=== PATIENT | female | born 1965 | race Caucasian/White ===

== ENCOUNTER 2016-05-30 10:37 | Day surgery (SDC) | payer OTHER ==
[~2016-05-30] VITALS: Ht 157.5 cm; Wt 70.3 kg
[~2016-05-30 10:37] MED LIST: CLINDAMYCIN 600MG PREMIX 50 ML IV PRN; CLON0.1T PO; FENTANYL PF 100 MCG/2 ML VIAL. IV PRN; HYDROMORPHONE 2 MG/ML VIAL. IV PRN; IV RINGERS,LACTATED 1000ML 1,000 ML IV SCH; LIDOCAINE 1% 1 ML SYRINGE. ID PRN; LIDOCAINE 1%/EPI 1:100,000 20 ML VIAL. ONE; LISI1TAB7 PO; MORPHINE SULFATE 2 MG/ML DISP.SYRIN. IV PRN; ONDANSETRON PF 4 MG/2 ML VIAL. IV PRN; OXYC-323 PO; Oxycodone Hcl/Acetaminophen PO; PROCHLORPERAZINE 10 MG/2 ML VIAL. IV PRN
[2016-05-30] MEDS ORDERED: PROPOFOL 20 ML IV ONE (12:19)
[2016-05-30] MEDS ORDERED: LIDOCAINE 2% 100 MG/5 ML DISP.SYRIN. ONE (12:19)
[2016-05-30] MEDS ORDERED: MIDAZOLAM HCL 2 MG/2 ML VIAL. ONE (12:19)
[2016-05-30] MEDS ORDERED: SEVOFLURANE 31 TO 60 MINUTES. IH ONE (12:33)
[2016-05-30] MEDS ORDERED: DEXAMETHASONE SOD PHOS 20 MG/5 ML VIAL. ONE (12:33)
[2016-05-30] MEDS ORDERED: ONDANSETRON PF 4 MG/2 ML VIAL. ONE (12:50)
[2016-05-30] MEDS ORDERED: BUPIVACAINE-EPI 0.5%-1:200000 50 ML VIAL. ONE (13:04)
--- NOTE | 2016-05-30 13:13 | DISCH ---
DISCHARGE INSTRUCTIONS Condition on Discharge Condition on Discharge: Stable Activity After Discharge Activity Instructions for Disc: No restrictions Driving Instructions after Dis: Other, see below (no driving while taking prescription pain meds) Wound Incision Care Wound/Incision Care: Other, see below (keep dressing clean and dry X 72 hours, may then remove and shower) Follow-Up Follow up with: Dr Morris in 2 weeks, call for appt [phone] CHAPIN MORRIS MD May 30, 2016 13:13
[2016-05-30] MEDS ORDERED: HYDROCODONE/APAP 5/325MG TABLET. PO ONE (13:45)
--- NOTE | 2016-05-30 14:00 | PDOC4 ---
Operative Note Operative Note Operative Note: Preoperative Diagnosis: Breast cancer Postoperative Diagnosis: Same Procedure: Removal of Port-A-Cath Surgeon: Jeff Anesthesia: Gen. EBL: 10 mL Specimen: None Drains: None Complications: None Indication: The patient is a 51-year-old female who completed chemotherapy for breast cancer. She was referred for removal of the Port-A-Cath. The risks of surgery were discussed which include bleeding infection pain anesthetic risk potential need for additional surgery or procedure. She understands and would like to proceed. Description: The patient was taken to the operating room and placed supine on the operating table. Gen. anesthesia was performed. The left chest was prepped with ChloraPrep and draped in a standard surgical manner. An incision was made at the site of the prior scar with a scalpel. Cautery dissection was carried down to the capsule. The capsule was then opened exposing the port. The anchoring Prolene sutures were cut and the port was readily delivered from the capsule. The port was then completely excised with the attached catheter in its entirety. The catheter tract was oversewn with a 3-0 Vicryl suture. A few small bleeding spots were controlled with cautery. Hemostasis was then good and no other abnormalities were seen. The skin was then closed with a running 4-0 Monocryl suture. The incision site was infiltrated with half percent Marcaine with epinephrine. A sterile dressing was then applied. The patient tolerated the procedure well and was sent to the recovery room in stable condition. At the end of the case all counts were correct. CHAPIN MORRIS MD May 30, 2016 14:00
[2016-05-30 14:10] VITALS: BP 137/83
== END 2016-05-30 14:41 | disposition home or self-care (01) ==
LOC: SURG 10:37
PROVIDERS: ATTEND Surgery
DX: C50.912 Malignant neoplasm of unspecified site of left female breast (principal); E07.9 Disorder of thyroid, unspecified; I10 Essential (primary) hypertension; J44.9 Chronic obstructive pulmonary disease, unspecified; J40 Bronchitis, not specified as acute or chronic; Z90.710 Acquired absence of both cervix and uterus; Z90.721 Acquired absence of ovaries, unilateral; F31.9 Bipolar disorder, unspecified; F17.200 Nicotine dependence, unspecified, uncomplicated; F10.99 Alcohol use, unspecified with unspecified alcohol-induced disorder; D64.9 Anemia, unspecified; Z51.11 Encounter for antineoplastic chemotherapy
CPT/HCPCS: 36590; J1100; J2250; J2405; J2704; J3490

== ENCOUNTER → 2016-08-23 | Outpatient (CLI) | payer OTHER ==
[~2016-08-23] MED LIST changes: -CLINDAMYCIN 600MG PREMIX 50 ML IV PRN; -FENTANYL PF 100 MCG/2 ML VIAL. IV PRN; -HYDROMORPHONE 2 MG/ML VIAL. IV PRN; -IV RINGERS,LACTATED 1000ML 1,000 ML IV SCH; -LIDOCAINE 1% 1 ML SYRINGE. ID PRN; -LIDOCAINE 1%/EPI 1:100,000 20 ML VIAL. ONE; -MORPHINE SULFATE 2 MG/ML DISP.SYRIN. IV PRN; -ONDANSETRON PF 4 MG/2 ML VIAL. IV PRN; -PROCHLORPERAZINE 10 MG/2 ML VIAL. IV PRN
--- NOTE | 2016-08-23 14:44 | RAD ---
Left breast ultrasound History: Palpable area in the left breast at 7:00. The patient has history of right breast cancer status post mastectomy. Comparison: Outside diagnostic left mammogram 01/29/2016. Concurrent mammography was not performed at time of this left breast ultrasound. Findings: Ultrasound imaging for left breast by genetic technologist. Whole breast ultrasound was performed around the clock face as well as in the left axilla. No solid or cystic masses are identified. No axillary lymphadenopathy is seen. Heterogeneous breast parenchyma is seen. No abnormality is seen at 7:00 in the area of clinical interest. Impression: 1. Negative whole left breast ultrasound. No solid or cystic masses are identified. 2. Negative imaging should not preclude biopsy of a clinically suspicious abnormality. BI-RADS CATEGORY: 1 NEGATIVE RECOMMENDED FOLLOW-UP: CLIN FOLLOW UP IMAGING CLINICALLY INDICATED
== END | disposition home or self-care (01) ==
LOC: US 12:38
PROVIDERS: ATTEND Internal Medicine Hematology & Oncology
DX: C50.411 Malignant neoplasm of upper-outer quadrant of right female breast (principal); N63 Unspecified lump in breast
CPT/HCPCS: 76641

== ENCOUNTER → 2017-06-23 | Outpatient (CLI) | payer OTHER ==
[~2017-06-23] MED LIST changes: -CLON0.1T PO; +IOHEXOL 240 MG/ML 50ML VIAL. PO; -LISI1TAB7 PO; -OXYC-323 PO; -Oxycodone Hcl/Acetaminophen PO
[2017-06-23] MEDS: IOHEXOL 300 MG/ML 100ML VIAL. IV ×2 (09:00)
== END | disposition home or self-care (01) ==
LOC: NM 07:12
DX: C50.919 Malignant neoplasm of unspecified site of unspecified female breast (principal); J44.9 Chronic obstructive pulmonary disease, unspecified; Z85.3 Personal history of malignant neoplasm of breast; Z90.11 Acquired absence of right breast and nipple; Z87.891 Personal history of nicotine dependence
CPT/HCPCS: 71260; 74177; 77065; 78306; 96374; A9503; Q9967

== ENCOUNTER → 2017-06-30 | Outpatient (CLI) | payer OTHER | END | disposition home or self-care (01) | LOC: RAD 10:08 | DX: C50.411 Malignant neoplasm of upper-outer quadrant of right female breast (principal); M47.9 Spondylosis, unspecified; Z17.1 Estrogen receptor negative status [ER-]; Z85.3 Personal history of malignant neoplasm of breast | CPT/HCPCS: 71100 ==